=== PATIENT | female | born 1940 | race Caucasian/White ===

== ENCOUNTER 2019-12-07 12:42 | Inpatient (IN) ==
[2019-12-07] MEDS ORDERED: SODIUM CHLORIDE 0.9% 1,000 ML IV STA (13:37)
[2019-12-07 13:48] LABS: Basophils % 0.2 % (0.0-0.8); Hematocrit 43.7 VOL% (35.7-47.0); Hemoglobin 15.1 GM/DL (12.0-16.0); Immature Granulocytes % 0.4 %; Immature Granulocytes Absolute 0.04 #; Lymphocytes # 0.8 10*3/uL (1.4-4.0); Lymphocytes % 7.9 % (21.3-54.2); Mean Corpuscular HGB Conc 34.6 GM/DL (32-36); Mean Corpuscular Volume 97.5 FL (87-102); Monocytes % 10.5 % (1.7-12.7); Platelet Count 191 T/CUMM (130-400); Red Blood Count 4.48 MC/CUMM (3.8-5.5); Red Cell Distribution Width 12.2 % (9.3-17.3); White Blood Count 10.6 T/CUMM (4-12)
[2019-12-07 13:59] LABS: Albumin 3.8 G/DL (3.4-5.0); Bilirubin,Total 1.6 MG/DL (0.2-1.0); Calcium 11.5 MG/DL (8.5-10.1); Osmolality,Calculated 261.8 MOS/KG (273-304); Total Protein 7.6 G/DL (6.4-8.3)
[2019-12-07] MEDS ORDERED: ONDANSETRON 4 MG/2 ML VIAL ONE (14:53)
[2019-12-07] MEDS ORDERED: ONDANSETRON 4 MG/2 ML VIAL IV STA (14:58)
[2019-12-07 15:29] LABS: Apearance,Urine Slightly Hazy (Clear); Bacteria,Urine Occasional /HPF (Few); Bilirubin,Urine Negative (Negative); Blood, Urine Small mg/dL (Negative); Glucose,Urine (UA) Negative (Negative); Hyaline Casts,Urine 32 /LPF (0-3); Ketones,Urine 5 mg/dL (Negative); Mucus,Urine Occasional /LPF (Occasional); Nitrite,Urine Negative (Negative); Protein,Urine Negative; RBC,Urine 1 /HPF (0-4); Squamous Epithelial Cell,Urine Occasional /HPF (0-10); Urine Color Amber (Yellow); Urine Specific Gravity 1.016 (1.001-1.035); Urine Urobilinogen < 2.0 EU/DL (0.2-1.0); WBC,Urine 3 /HPF (0-6)
[2019-12-07] MEDS ORDERED: PROMETHAZINE 25 MG/1 ML VIAL IM PRN (17:27)
[2019-12-07] MEDS ORDERED: ACETAMINOPHEN 325 MG TABLET PO PRN (17:27)
[2019-12-07] MEDS: PANTOPRAZOLE 40 MG VIAL IV SCH (18:16)
[2019-12-07] MEDS: SODIUM CHLORIDE 0.9% 1,000 ML IV SCH (21:05)
[2019-12-07] MEDS: HYDROmorphone 2 MG/1 ML VIAL IV PRN (23:09)
[2019-12-08] MEDS: HYDROmorphone 2 MG/1 ML VIAL IV PRN ×3 (04:18→23:08)
[2019-12-08 05:40] LABS: Basophils % 0.3 % (0.0-0.8); Eosinophils % 0.2 % (0.00-10.9); Hematocrit 39.8 VOL% (35.7-47.0); Hemoglobin 13.5 GM/DL (12.0-16.0); Immature Granulocytes % 0.3 %; Immature Granulocytes Absolute 0.03 #; Lymphocytes % 10.7 % (21.3-54.2); Mean Corpuscular HGB Conc 33.9 GM/DL (32-36); Mean Platelet Volume 9.8 FL (9.6-12.0); Monocytes % 14.7 % (1.7-12.7); Neutrophils % 73.8 % (38.7-73.9); Platelet Count 170 T/CUMM (130-400); Red Blood Count 4.02 MC/CUMM (3.8-5.5); Red Cell Distribution Width 12.2 % (9.3-17.3); White Blood Count 8.8 T/CUMM (4-12)
[2019-12-08 06:03] LABS: Calcium 9.3 MG/DL (8.5-10.1); Osmolality,Calculated 270.8 MOS/KG (273-304)
[2019-12-08] MEDS: SODIUM CHLORIDE 0.9% 1,000 ML IV SCH (07:51)
[2019-12-08] MEDS ORDERED: POTASSIUM CHLORIDE RIDER 10 MEQ in PREMIX 1 EACH IV PRN ×2 (07:54→07:57)
[2019-12-08] MEDS: carvediloL 6.25 MG TABLET PO SCH ×2 (09:00→21:13)
[2019-12-08] MEDS: GABAPENTIN 100 MG CAPSULE PO SCH ×3 (09:00→21:13)
[2019-12-08] MEDS: ENOXAPARIN 30 MG/0.3 ML SYRINGE SUBCUT SCH (09:16)
[2019-12-08] MEDS: IPRATROPIUM 500 MCG/2.5 ML NEB RESP TX SCH ×3 (11:00→20:39)
[2019-12-08] MEDS: PANTOPRAZOLE 40 MG VIAL IV SCH (13:22)
[2019-12-08] MEDS: DEXT 5% NACL 0.9% KCL 40 MEQ 40 MEQ/1,000 ML BAG IV SCH ×2 (13:28→18:30)
[2019-12-09] MEDS: ONDANSETRON 4 MG/2 ML VIAL IV PRN (00:16)
[2019-12-09] MEDS: DEXT 5% NACL 0.9% KCL 40 MEQ 40 MEQ/1,000 ML BAG IV SCH ×4 (00:17→21:45)
[2019-12-09 05:00] LABS: Basophils % 0.1 % (0.0-0.8); Eosinophils % 0.2 % (0.00-10.9); Hematocrit 41.1 VOL% (35.7-47.0); Hemoglobin 13.9 GM/DL (12.0-16.0); Immature Granulocytes % 0.4 %; Immature Granulocytes Absolute 0.03 #; Lymphocytes # 0.8 10*3/uL (1.4-4.0); Lymphocytes % 9.3 % (21.3-54.2); Mean Corpuscular HGB Conc 33.8 GM/DL (32-36); Mean Corpuscular Volume 98.6 FL (87-102); Mean Platelet Volume 9.8 FL (9.6-12.0); Monocytes % 17.9 % (1.7-12.7); Neutrophils % 72.1 % (38.7-73.9); Platelet Count 160 T/CUMM (130-400); Red Blood Count 4.17 MC/CUMM (3.8-5.5); Red Cell Distribution Width 12.3 % (9.3-17.3); White Blood Count 8.1 T/CUMM (4-12)
[2019-12-09 05:22] LABS: Atypical Lymphocytes Few; Band Neutrophils 2 % (0-10); Eosinophils 1 % (0-10); Hypochromasia 1+; Lymphocytes 13 % (20-55); Platelet Estimate Adequate; Segmented Neutrophils 69 % (50-85); Total Cells Counted 100
[2019-12-09 05:36] LABS: Osmolality,Calculated 284.7 MOS/KG (273-304)
[2019-12-09] MEDS: HYDROmorphone 2 MG/1 ML VIAL IV PRN ×4 (06:11→22:51)
[2019-12-09] MEDS: IPRATROPIUM 500 MCG/2.5 ML NEB RESP TX SCH ×4 (07:13→19:19)
[2019-12-09] MEDS: GABAPENTIN 100 MG CAPSULE PO SCH ×3 (09:50→21:42)
[2019-12-09] MEDS: carvediloL 6.25 MG TABLET PO SCH ×2 (09:50→21:42)
[2019-12-09] MEDS: ENOXAPARIN 30 MG/0.3 ML SYRINGE SUBCUT SCH (09:53)
[2019-12-09] MEDS: PANTOPRAZOLE 40 MG VIAL IV SCH (09:53)
[2019-12-09] MEDS ORDERED: SODIUM PHOSPHATE INJ 30 MMOL in SODIUM CHLORIDE 0.9% 250 ML IV ONE (12:30)
[2019-12-10 05:02] LABS: Basophils % 0.2 % (0.0-0.8); Eosinophils % 0.3 % (0.00-10.9); Hematocrit 43.4 VOL% (35.7-47.0); Immature Granulocytes % 0.8 %; Immature Granulocytes Absolute 0.07 #; Lymphocytes # 1.1 10*3/uL (1.4-4.0); Mean Corpuscular HGB Conc 32.3 GM/DL (32-36); Mean Corpuscular Volume 101.6 FL (87-102); Mean Platelet Volume 9.8 FL (9.6-12.0); Monocytes % 12.5 % (1.7-12.7); Neutrophils % 74.2 % (38.7-73.9); Platelet Count 165 T/CUMM (130-400); Red Blood Count 4.27 MC/CUMM (3.8-5.5); Red Cell Distribution Width 12.6 % (9.3-17.3); White Blood Count 8.9 T/CUMM (4-12)
[2019-12-10 05:22] LABS: Calcium 8.7 MG/DL (8.5-10.1); Osmolality,Calculated 288.8 MOS/KG (273-304)
[2019-12-10 05:33] LABS: Hypochromasia 1+
[2019-12-10 05:34] LABS: Platelet Estimate Adequate
[2019-12-10] MEDS: DEXT 5% NACL 0.9% KCL 40 MEQ 40 MEQ/1,000 ML BAG IV SCH ×2 (06:27→12:07)
[2019-12-10] MEDS: IPRATROPIUM 500 MCG/2.5 ML NEB RESP TX SCH ×4 (07:20→19:17)
[2019-12-10] MEDS: HYDROmorphone 2 MG/1 ML VIAL IV PRN ×3 (08:45→22:05)
[2019-12-10] MEDS: GABAPENTIN 100 MG CAPSULE PO SCH ×3 (08:46→22:05)
[2019-12-10] MEDS: ENOXAPARIN 30 MG/0.3 ML SYRINGE SUBCUT SCH (08:46)
[2019-12-10] MEDS: carvediloL 6.25 MG TABLET PO SCH ×2 (08:46→22:05)
[2019-12-10] MEDS: PANTOPRAZOLE 40 MG VIAL IV SCH (08:46)
[2019-12-11] MEDS: DEXT 5% NACL 0.9% KCL 40 MEQ 40 MEQ/1,000 ML BAG IV SCH ×3 (02:15→15:48)
[2019-12-11 06:20] LABS: Basophils % 0.4 % (0.0-0.8); Eosinophils # 0.1 10*3/uL (0.0-0.87); Hematocrit 41.6 VOL% (35.7-47.0); Hemoglobin 13.5 GM/DL (12.0-16.0); Immature Granulocytes % 1.9 %; Immature Granulocytes Absolute 0.18 #; Lymphocytes # 1.2 10*3/uL (1.4-4.0); Lymphocytes % 13.1 % (21.3-54.2); Mean Corpuscular HGB Conc 32.5 GM/DL (32-36); Mean Corpuscular Volume 101.2 FL (87-102); Mean Platelet Volume 10.3 FL (9.6-12.0); Monocytes % 12.3 % (1.7-12.7); Neutrophils % 71.3 % (38.7-73.9); Platelet Count 158 T/CUMM (130-400); Red Blood Count 4.11 MC/CUMM (3.8-5.5); Red Cell Distribution Width 12.8 % (9.3-17.3); White Blood Count 9.5 T/CUMM (4-12)
[2019-12-11 06:32] LABS: Calcium 8.5 MG/DL (8.5-10.1); Osmolality,Calculated 291.4 MOS/KG (273-304)
[2019-12-11 06:44] LABS: Band Neutrophils 1 % (0-10); Lymphocytes 16 % (20-55); Segmented Neutrophils 79 % (50-85); Total Cells Counted 100
[2019-12-11 06:45] LABS: Hypochromasia 1+; Platelet Estimate Normal
[2019-12-11] MEDS: IPRATROPIUM 500 MCG/2.5 ML NEB RESP TX SCH ×4 (07:04→19:20)
[2019-12-11] MEDS: PANTOPRAZOLE 40 MG VIAL IV SCH (08:24)
[2019-12-11] MEDS: ENOXAPARIN 30 MG/0.3 ML SYRINGE SUBCUT SCH (08:25)
[2019-12-11] MEDS: GABAPENTIN 100 MG CAPSULE PO SCH ×3 (08:25→20:26)
[2019-12-11] MEDS: carvediloL 6.25 MG TABLET PO SCH ×2 (08:25→20:26)
[2019-12-11] MEDS: HYDROmorphone 2 MG/1 ML VIAL IV PRN ×2 (14:57→20:26)
[2019-12-11] MEDS ORDERED: SIMETHICONE CHEW 80 MG TABLET PO PRN (22:35)
[2019-12-12] MEDS: HYDROmorphone 2 MG/1 ML VIAL IV PRN (00:30)
[2019-12-12] MEDS: DEXT 5% NACL 0.9% KCL 40 MEQ 40 MEQ/1,000 ML BAG IV SCH (04:42)
[2019-12-12] MEDS: IPRATROPIUM 500 MCG/2.5 ML NEB RESP TX SCH ×4 (07:10→19:31)
[2019-12-12] MEDS: PANTOPRAZOLE 40 MG VIAL IV SCH (08:20)
[2019-12-12] MEDS: GABAPENTIN 100 MG CAPSULE PO SCH ×3 (08:20→20:23)
[2019-12-12] MEDS: ENOXAPARIN 30 MG/0.3 ML SYRINGE SUBCUT SCH (08:20)
[2019-12-12] MEDS: carvediloL 6.25 MG TABLET PO SCH ×2 (08:20→20:23)
[2019-12-12] MEDS: DEXT 5% NACL 0.45% KCL 20 MEQ 20 MEQ/1,000 ML BAG IV SCH (10:09)
[2019-12-12] MEDS ORDERED: BENZOCAINE 20% SPRAY 57 GM CAN TOP ONE (10:15)
[2019-12-12] MEDS ORDERED: ceFAZolin 1,000 MG in SYRINGE 1 EACH IV ONE (12:38)
[2019-12-13] MEDS: HYDROmorphone 2 MG/1 ML VIAL IV PRN (00:13)
[2019-12-13] MEDS: DEXT 5% NACL 0.45% KCL 20 MEQ 20 MEQ/1,000 ML BAG IV SCH ×2 (05:40→19:50)
[2019-12-13] MEDS ORDERED: ceFAZolin 1,000 MG in SYRINGE 1 EACH IV ONE (06:30)
[2019-12-13] MEDS: carvediloL 6.25 MG TABLET PO SCH ×3 (07:00→20:47)
[2019-12-13] MEDS: IPRATROPIUM 500 MCG/2.5 ML NEB RESP TX SCH ×4 (07:46→20:20)
[2019-12-13 08:43] LABS: Calcium 7.5 MG/DL (8.5-10.1); Osmolality,Calculated 283.1 MOS/KG (273-304)
[2019-12-13] MEDS: PANTOPRAZOLE 40 MG VIAL IV SCH (11:40)
[2019-12-13] MEDS: ENOXAPARIN 40 MG/0.4 ML SYRINGE SUBCUT SCH (11:40)
[2019-12-13] MEDS: GABAPENTIN 100 MG CAPSULE PO SCH ×3 (11:40→20:47)
[2019-12-13] MEDS ORDERED: MAGNESIUM SULF RIDER 2 GM in PREMIX 1 EACH IV PRN (11:55)
[2019-12-13] MEDS ORDERED: MAGNESIUM SULF RIDER 4 GM in PREMIX 1 EACH IV PRN (11:55)
[2019-12-13] MEDS: POTASSIUM CHLORIDE RIDER 10 MEQ in PREMIX 1 EACH IV PRN ×4 (13:15→16:31)
[2019-12-14] MEDS: HYDROmorphone 2 MG/1 ML VIAL IV PRN ×3 (00:39→22:09)
[2019-12-14] MEDS: DEXT 5% NACL 0.45% KCL 20 MEQ 20 MEQ/1,000 ML BAG IV SCH (05:39)
[2019-12-14 06:49] LABS: Calcium 6.8 MG/DL (8.5-10.1); Osmolality,Calculated 263.5 MOS/KG (273-304)
[2019-12-14] MEDS: POTASSIUM CHLORIDE RIDER 10 MEQ in PREMIX 1 EACH IV PRN (07:01)
[2019-12-14] MEDS: IPRATROPIUM 500 MCG/2.5 ML NEB RESP TX SCH ×4 (07:05→20:11)
[2019-12-14] MEDS ORDERED: DEXTROSE 50% 25 GM/50 ML VIAL IV PRN (07:48)
[2019-12-14] MEDS ORDERED: DEXTROSE 10% 1,000 ML IV PRN (07:48)
[2019-12-14] MEDS ORDERED: GLUCAGON 1 MG VIAL IM PRN (07:48)
[2019-12-14] MEDS ORDERED: DEXTROSE 10% 250 ML BAG IV PRN (08:00)
[2019-12-14] MEDS ORDERED: [UNRECOGNIZED DRUG - OTHER] IV SCH (09:00)
[2019-12-14] MEDS ORDERED: TRACE ELEMENTS IV SCH (09:00)
[2019-12-14] MEDS ORDERED: MULTIVITAMIN IV SCH (09:00)
[2019-12-14] MEDS ORDERED: POTASSIUM PHOSPHATE IV SCH (09:00)
[2019-12-14] MEDS: PANTOPRAZOLE 40 MG VIAL IV SCH (09:34)
[2019-12-14] MEDS: ENOXAPARIN 40 MG/0.4 ML SYRINGE SUBCUT SCH (09:37)
[2019-12-14] MEDS: carvediloL 6.25 MG TABLET PO SCH ×2 (09:38→20:40)
[2019-12-14] MEDS: GABAPENTIN 100 MG CAPSULE PO SCH ×3 (09:38→20:39)
[2019-12-14] MEDS: [UNRECOGNIZED DRUG - OTHER] IV SCH (10:11)
[2019-12-14] MEDS: POTASSIUM PHOSPHATE IV SCH (10:11)
[2019-12-14] MEDS: MULTIVITAMIN IV SCH (10:11)
[2019-12-14] MEDS: TRACE ELEMENTS IV SCH (10:11)
[2019-12-14] MEDS: INSULIN REGULAR 100 UNIT/ML SUBCUT SCH ×2 (13:03→18:06)
[2019-12-14] MEDS: SODIUM CHLOR 0.9% KCL 40 MEQ 40 MEQ/1,000 ML BAG IV SCH ×2 (13:22→22:11)
[2019-12-15] MEDS: INSULIN REGULAR 100 UNIT/ML SUBCUT SCH ×4 (01:17→19:15)
[2019-12-15] MEDS: MULTIVITAMIN IV SCH (06:14)
[2019-12-15] MEDS: POTASSIUM PHOSPHATE IV SCH (06:14)
[2019-12-15] MEDS: TRACE ELEMENTS IV SCH (06:14)
[2019-12-15] MEDS: [UNRECOGNIZED DRUG - OTHER] IV SCH (06:14)
[2019-12-15 07:04] LABS: Prealbumin 7.5 MG/DL (20-40)
[2019-12-15 07:09] LABS: Calcium 7.2 MG/DL (8.5-10.1)
[2019-12-15] MEDS: IPRATROPIUM 500 MCG/2.5 ML NEB RESP TX SCH ×4 (08:04→19:46)
[2019-12-15] MEDS: PANTOPRAZOLE 40 MG VIAL IV SCH (08:51)
[2019-12-15] MEDS: GABAPENTIN 100 MG CAPSULE PO SCH ×3 (08:54→21:06)
[2019-12-15] MEDS: carvediloL 6.25 MG TABLET PO SCH ×2 (08:54→21:06)
[2019-12-15] MEDS: ENOXAPARIN 40 MG/0.4 ML SYRINGE SUBCUT SCH (09:06)
[2019-12-15] MEDS ORDERED: SODIUM PHOSPHATE INJ 30 MMOL in SODIUM CHLORIDE 0.9% 250 ML IV ONE (10:30)
[2019-12-15] MEDS ORDERED: ELECTROLYTE CONCENTRATE 20 ML, TRACE ELEMENTS (5) 1 ML, MULTIVITAMIN INJ 10 ML in STERI... IV SCH (17:00)
[2019-12-15] MEDS ORDERED: HYDROmorphone 2 MG/1 ML VIAL SUBCUT PRN (17:27)
[2019-12-15] MEDS: HYDROmorphone 2 MG/1 ML VIAL IV PRN ×2 (17:49→23:48)
[2019-12-15] MEDS: ONDANSETRON 4 MG/2 ML VIAL IV PRN (17:51)
[2019-12-16] MEDS: INSULIN REGULAR 100 UNIT/ML SUBCUT SCH ×3 (06:52→12:16)
[2019-12-16] MEDS: IPRATROPIUM 500 MCG/2.5 ML NEB RESP TX SCH ×3 (07:15→14:26)
[2019-12-16] MEDS: GABAPENTIN 100 MG CAPSULE PO SCH (09:36)
[2019-12-16] MEDS: PANTOPRAZOLE 40 MG VIAL IV SCH (09:36)
[2019-12-16] MEDS: carvediloL 6.25 MG TABLET PO SCH (09:36)
[2019-12-16] MEDS: ENOXAPARIN 40 MG/0.4 ML SYRINGE SUBCUT SCH (09:37)
[2019-12-16 12:43] VITALS: BP 117/54
== END 2019-12-16 15:30 | disposition home or self-care (01) | DRG 389 ==
LOC: N.ED 12:42 → N.EDINP 16:36 → N.3E 17:02
PROVIDERS: ADMIT Surgery; ATTEND Surgery